=== PATIENT | male | born 1960 | race Caucasian/White ===

== ENCOUNTER 2018-04-28 07:36 | Day surgery (SDC) | payer OTHER, SELFPAY ==
--- NOTE | 2018-04-28 | PATH_ITS ---
[facility] Accession Number: [id number] . 01 Material submitted: . PART A: CECAL POLYP PART B: ASCENDING COLON POLYP PART C: TRANSVERSE COLON POLYP PART D: DESCENDING COLON POLYP . 02 Diagnosis: A. Cecal Polyp: Inflammatory polyp. . B. Ascending Colon Polyp: Tubular adenoma. . C. Transverse Colon Polyp: Tubular adenoma. . D. Descending Colon Polyp: Hyperplastic polyp. MRV/04/29/2018 . 02 Electronically signed: . Beka King MD, PhD, Pathologist NPI- [id number] . 01 Gross description: . Received four formalin-filled containers each labeled with the patient's name. . A. In a container labeled cecal polyp, the specimen consists of a 0.2 cm portion of tissue. Entirely submitted in cassette A. B. In a container labeled ascending colon polyp, the specimen consists of a 0.3 cm portion of tissue. Entirely submitted in cassette B. C. In a container labeled transverse colon polyp, the specimen consists of a 0.3 cm portion of tissue. Entirely submitted in cassette C. D. In a container labeled descending colon polyp, the specimen consists of a 0.2 cm portion of tissue. Entirely submitted in cassette D. ([facility]:[id number]) /[facility] . 02 Pathologist provided ICD-10: D12.2, D12.3, K63.5, K51.40 . 02 CPT . 251472, 146540, 209024, 327459 Specimen Comment: A duplicate report has been generated due to demographic updates. Performed at: [address] [facility] [address], [place], [place] [id number] MD Faustino Cosme MD Phone: [phone] Performed at: 02 [facility] [place] [address] [address] [place] [id number] MD Nick Head MD Phone: [phone]
[2018-04-28] MEDS: SODIUM CHLORIDE 0.9% 1,000 ML 70 ML IV (08:00)
--- NOTE | 2018-04-28 08:01 | PM.HP.1 ---
History of Present Illness Date Patient Seen: 04/28/18 Chief complaint: [id number] SCREENING COLONOSCOPY Narrative: 58-year-old male who is here for average risk colon cancer screening. There is no family history of colon cancer or inflammatory bowel disease and there is no active GI issue Meds Home Medications Medication Instructions Recorded Confirmed Type hydrochlorothiazide 25 mg PO DAILY 04/28/18 04/28/18 History lisinopril 10 mg PO DAILY 04/28/18 04/28/18 History omeprazole 20 mg PO DAILY 04/28/18 04/28/18 History simvastatin 20 mg PO DAILY 04/28/18 04/28/18 History Allergies Allergy/AdvReac Type Severity Reaction Status Date / Time Penicillins Allergy Severe Difficulty Verified 04/28/18 07:57 Breathing Review of Systems Review of Systems All systems reviewed & are unremarkable except as noted in HPI and below Exam Narrative Exam Narrative: General: Patient is obese, not in apparent distress Cardiovascular: Regular rate and rhythm, no murmurs, rubs, or gallops; no evidence of edema; no palpable abdominal aortic aneurysm Gastrointestinal: Normoactive bowel sounds, soft, nontender, nondistended, no rebound tenderness, no hepatosplenomegaly, no evidence of hernia Assessment & Plan Plan: Assessment/Plan Narrative: 58-year-old male here for average risk colon cancer screening. Regarding the procedure(s), the risks and potential complications, benefits, and alternatives (including not doing the procedure) were discussed with the patient. The risks include but are not limited to bleeding, infection, perforation which may require surgical intervention, missed lesions, and adverse reactions to sedative medicines. After a question and answer period, the patient agreed to proceed with the procedure(s) and gives informed consent.
[2018-04-28 08:06] VITALS: BP 172/91; PULSE 66; RESP 10; TEMP 36.8; O2SAT 99; BMI 36.8
--- NOTE | 2018-04-28 08:23 | PM.OP.ENDO ---
Operative Date/Time/Diagnoses Date of procedure: 04/28/18 Procedure Notes Procedure in detail: Surgeon: Brice Alvarado MD Procedure: Colonoscopy with polypectomy Preoperative diagnosis: Average risk colon cancer screening Postoperative diagnosis: Colon polyps status post polypectomy, grade 1 internal hemorrhoids Medications: Conscious sedation using 4 mg IV of Midazolam and 100 mcg IV of Fentanyl Preanesthesia Assessment An H and P was performed/updated and the Px?s ASA class is 2. The procedure was discussed in detail with the patient. The potential risks and complications including infection, bleeding, missed lesions, perforation, need for surgery in case of perforation, prolonged hospital stay, and were explained. A brief question and answer period was allotted and once all questions were answered, informed consent was obtained. The patient was brought back to the procedure room and placed on standard monitoring. The patient?s vital signs were monitored continuously throughout the entire procedure. Prior to starting, a timeout was performed to confirm the patient?s identity, allergies, medications, and procedure. Procedure in detail The patient was placed in left lateral decubitus position and once adequate sedation was obtained a REBECA was performed. The digital rectal examination did not reveal any palpable lesions. The tip of the colonoscope was placed in the anal canal and advanced without difficulty all the way to the cecum which was identified by the appendiceal orifice and the ileocecal valve. The terminal ileum was intubated to a distance of 5 cm and mucosa appeared normal. The colonoscope was brought back to the cecum and examination of all das of the colon was performed with irrigation of any residual stool. In the cecum, there was note of a 5 mm sessile polyp which was removed by means of cold snare. Excision and retrieval were complete with minimal bleeding. In the ascending colon, there was note of a 3 mm sessile polyp was removed by means of cold Jumbo forceps. Excision and retrieval were complete with minimal bleeding. In the transverse colon, there was note of a 3 mm sessile polyp was removed by means of cold Jumbo forceps. Excision and retrieval were complete with minimal bleeding. In the descending colon, there was note of a 3 mm sessile polyp was removed by means of cold Jumbo forceps. Excision and retrieval were complete with minimal bleeding. Retroflexion was performed in the rectum which revealed grade 1 internal hemorrhoids. The patient tolerated the procedure well and will be brought back to the recovery area to be discharged once criteria are met. The prep was judged to be good/excellent and adequate to identify polyps less than 5 mm. The withdrawal time was 10 min. The total physician intraservice time was 16 min. Complications There were no complications and estimated blood loss was minimal. Recommendations: Resume previous diet Continue outPx medications Follow up pathology results Repeat colonoscopy in 3 or 5 years depending on pathology results An emergency contact number was given to the patient for any complications related to the procedure
[2018-04-28] MEDS: MIDAZOLAM 5 MG/5 ML VIAL IV (08:41)
[2018-04-28] MEDS: fentaNYL 250 MCG/5 ML INJ IV (08:43)
--- NOTE | 2018-04-28 08:45 | PM.DS.1 ---
History of Present Illness Chief complaint: [id number] SCREENING COLONOSCOPY Narrative: 58-year-old male who is here for average risk colon cancer screening. There is no family history of colon cancer or inflammatory bowel disease and there is no active GI issue Discharge Providers Primary care physician: HARLAN James Aas Discharge provider: Brice Alvarado MD Exam Vital Signs (past 8 hours): - 04/28/18 08:06 Temperature 98.3 F Pulse Rate 66 Respiratory Rate 10 L Blood Pressure 172/91 H Pulse Oximetry 99 Oxygen Delivery Method Room Air Narrative Exam Narrative: General: Patient is obese, not in apparent distress Cardiovascular: Regular rate and rhythm, no murmurs, rubs, or gallops; no evidence of edema; no palpable abdominal aortic aneurysm Gastrointestinal: Normoactive bowel sounds, soft, nontender, nondistended, no rebound tenderness, no hepatosplenomegaly, no evidence of hernia Discharge Plan Discharge Plan Patient Disposition: Home Discharge Med Rec/Prescriptions Prescriptions: Continue simvastatin 20 mg Tablet 20 mg PO DAILY RF: 0 lisinopril 10 mg Tablet 10 mg PO DAILY RF: 0 omeprazole 20 mg Capsule,Delayed Release(Dr/Ec) 20 mg PO DAILY RF: 0 hydrochlorothiazide 25 mg Tablet 25 mg PO DAILY RF: 0 Discharge Orders: Discharge (Order); Ordered 04/28/18 Ordered By: Brice Alvarado Provider Discharge Instructions Diet: Diet as Tolerated Visit Report/Discharge Packet Stand Alone Forms: Surgery Discharge Discharge Data Primary Care Provider: Khushi Tapia Attending Provider: Brice Alvarado
[2018-04-28 08:50] VITALS: BP 139/95; PULSE 64; RESP 16; TEMP 36.6; O2SAT 98
--- NOTE | 2018-04-28 09:04 | SUR.PHASEII ---
pt awake on arrival to opd, friend brought in, d/c instructions discussed, pt voiced he was ready to go home, he dressed and left in stable condition.
== END 2018-04-28 12:00 | disposition home or self-care (01) ==
PROVIDERS: PCP Nurse Practitioner Family; Visit Provider Internal Medicine Gastroenterology
PROC: 0DJD8ZZ Inspection of Lower Intestinal Tract, Via Natural or Artificial Opening Endoscopic (ICD-10-PCS; CPT 45378; principal; 2018-04-28 08:30)
DX: Z12.11 Encounter for screening for malignant neoplasm of colon (principal); I10 Essential (primary) hypertension; E78.5 Hyperlipidemia, unspecified; E66.9 Obesity, unspecified; Z68.36 Body mass index [BMI] 36.0-36.9, adult; K64.0 First degree hemorrhoids; D12.2 Benign neoplasm of ascending colon; D12.3 Benign neoplasm of transverse colon; K63.5 Polyp of colon; K51.40 Inflammatory polyps of colon without complications
CPT/HCPCS: 45385; 45380; J2250; J3010

== ENCOUNTER → 2019-06-09 06:59 | Outpatient (CLI) | payer OTHER, SELFPAY ==
--- NOTE | 2019-06-10 15:58 | PM.PFT.1 ---
Pulmonary Function Test Referral & Results Date Patient Seen: 06/09/19 Requesting provider: Khushi Wolff Aas Results: The spirometry demonstrates an FVC of 2.72 L which is 62% of predicted. The FEV1 was measured at 2.16 L which is 65% of predicted. The FEV1/FVC ratio was 79 which is 104% of predicted. Following the administration of bronchodilator there was a 13% improvement in FEV1 and a 54% improvement in FEF 25-75%. Lung volumes show an SVC of 3.41 L which is 78% of predicted. The diffusing capacity was measured at 21.73 which is 76% of predicted. The maximum voluntary ventilation was normal Interpretation: This study demonstrates moderate obstructive lung disease with limited evidence of benefit following bronchodilator administration particularly small airway flows as above based on improvement in FEF 25-75% There is also mild restrictive lung disease present based on reduction SVC There may also be an element of disease at the capillary alveolar level based on slight reduction of diffusing capacity, unless patient is anemic Clinical correlation suggested
== END ==
PROVIDERS: Visit Provider Internal Medicine
DX: J44.9 Chronic obstructive pulmonary disease, unspecified (principal)
CPT/HCPCS: 94060; 94726; 94729